=== PATIENT | male | born 1990 | race Caucasian/White ===

== ENCOUNTER 2021-04-18 18:26 | Emergency (ER) | payer OTHER ==
[~2021-04-18] VITALS: Ht 177.8 cm; Wt 88.5 kg
== END 2021-04-18 20:05 | disposition home or self-care (01) ==
LOC: ER 18:26
DX: S61.211A Laceration without foreign body of left index finger without damage to nail, initial encounter (principal); W27.2XXA Contact with scissors, initial encounter; Y93.E8 Activity, other personal hygiene
CPT/HCPCS: 12001; 99282-25